=== PATIENT | female | born 1995 | race Caucasian/White ===

== ENCOUNTER 2017-03-14 13:13 | Emergency (ER) | payer MEDICAID ==
[~2017-03-14] VITALS: Ht 149.9 cm; Wt 67.1 kg
[~2017-03-14 13:13] MED LIST: BUPR-86 PO; CLON0.5T PO
[2017-03-14] MEDS ORDERED: ONDANSETRON 2MG/ML, 2ML IVPush ONE (16:00)
[2017-03-14] MEDS ORDERED: MORPHINE SULFATE 4 MG/ML, 1ML IVPush PRN (16:00)
[2017-03-14] MEDS ORDERED: SODIUM CHLORIDE 0.9% 1,000ML IVBOLUS ONE (16:00)
[2017-03-14] MEDS ORDERED: SODIUM CHLORIDE FLUSH 10ML SYR IVF ONE (16:00)
[2017-03-14] MEDS ORDERED: ONDANSETRON 2MG/ML, 2ML ONE (16:06)
[2017-03-14 16:31] LABS: BASOPHILS # (AUTO) 0.03 x10^3/uL (0-0.1); BASOPHILS % (AUTO) 0 % (0-1); EOSINOPHILS # (AUTO) 0.06 x10^3/uL (0-0.4); EOSINOPHILS % (AUTO) 1 % (1-7); LYMPHOCYTES # (AUTO) 2.53 x10^3/uL (1-3.4); LYMPHOCYTES % (AUTO) 27 % (22-44); MD NO; MEAN CORPUSCULAR HGB CONC 33.9 g/dL (32.4-35.8); MEAN CORPUSCULAR VOLUME 88.4 fL (80-100); MEAN PLATELET VOLUME 9.6 fL (7.4-10.4); MONOCYTES # (AUTO) 0.34 x10^3/uL (0.2-0.8); MONOCYTES % (AUTO) 4 % (2-9); NEUTROPHILS # (AUTO) 6.32 x10^3/uL (1.8-6.8); NEUTROPHILS % (AUTO) 68 % (42-75); PLATELET COUNT 278 x10^3/uL (130-400); RED BLOOD COUNT 4.49 x10^6/uL (3.82-5.3); RED CELL DISTRIBUTION WIDTH 13.3 % (9.6-15.2)
[2017-03-14] MEDS ORDERED: MORPHINE SULFATE 4 MG/ML, 1ML ONE (16:31)
[2017-03-14 16:43] LABS: ALBUMIN 3.9 g/dL (3.4-5.0); ANION GAP 6 mmol/L (5-15); CALCIUM 8.7 mg/dL (8.5-10.1); CHLORIDE 110 mmol/L (98-107); CREATININE 0.83 mg/dL (0.55-1.02)
[2017-03-14 16:54] LABS: MICROSCOPIC AUTO
[2017-03-14 17:03] LABS: CULTURE INDICATED? YES
[2017-03-14 17:31] VITALS: BP 121/74
[2017-03-18] MEDS ORDERED: ESCI5TAB7 PO (21:59)
== END 2017-03-14 17:33 | disposition home or self-care (01) ==
LOC: ED 17:03
DX: N30.00 Acute cystitis without hematuria (principal); R11.2 Nausea with vomiting, unspecified; Z90.49 Acquired absence of other specified parts of digestive tract
CPT/HCPCS: 36415; 80048; 81001; 82040; 83605; 84703; 85025; 87086; 96361; 96374; 96375; 99284; J2405; J7030

== ENCOUNTER 2017-03-31 19:27 | Emergency (ER) | payer MEDICAID ==
[~2017-03-31] VITALS: Ht 149.9 cm; Wt 67.7 kg
[~2017-03-31 19:27] MED LIST changes: +ESCI5TAB7 PO
[2017-03-31] MEDS ORDERED: SODIUM CHLORIDE FLUSH 10ML SYR IVF ONE (20:00)
[2017-03-31] MEDS ORDERED: SODIUM CHLORIDE 0.9% 1,000ML IVBOLUS ONE (20:00)
[2017-03-31] MEDS ORDERED: FAMOTIDINE 20 MG/2 ML IVP ONE (20:00)
[2017-03-31] MEDS ORDERED: ONDANSETRON 2MG/ML, 2ML IVPush ONE ×2 (20:00→22:30)
[2017-03-31] MEDS ORDERED: FAMOTIDINE 20 MG/2 ML ONE (20:31)
[2017-03-31] MEDS ORDERED: MORPHINE SULFATE 4 MG/ML, 1ML ONE (20:31)
[2017-03-31] MEDS ORDERED: ONDANSETRON 2MG/ML, 2ML ONE ×2 (20:31→22:14)
[2017-03-31] MEDS: MORPHINE SULFATE 4 MG/ML, 1ML IVPush PRN ×2 (20:35→22:19)
[2017-03-31 20:43] LABS: CULTURE INDICATED? YES; MICROSCOPIC INDICATED
[2017-03-31 20:51] LABS: BASOPHILS # (AUTO) 0.02 x10^3/uL (0-0.1); BASOPHILS % (AUTO) 0 % (0-1); EOSINOPHILS # (AUTO) 0.01 x10^3/uL (0-0.4); EOSINOPHILS % (AUTO) 0 % (1-7); LYMPHOCYTES # (AUTO) 1.26 x10^3/uL (1-3.4); LYMPHOCYTES % (AUTO) 14 % (22-44); MD NO; MEAN CORPUSCULAR HEMOGLOBIN 29.7 pg (27.0-34.8); MEAN CORPUSCULAR HGB CONC 33.8 g/dL (32.4-35.8); MEAN CORPUSCULAR VOLUME 87.6 fL (80-100); MEAN PLATELET VOLUME 9.4 fL (7.4-10.4); MONOCYTES # (AUTO) 0.48 x10^3/uL (0.2-0.8); MONOCYTES % (AUTO) 5 % (2-9); NEUTROPHILS # (AUTO) 7.37 x10^3/uL (1.8-6.8); NEUTROPHILS % (AUTO) 81 % (42-75); PLATELET COUNT 297 x10^3/uL (130-400); RED BLOOD COUNT 4.53 x10^6/uL (3.82-5.3); RED CELL DISTRIBUTION WIDTH 13.1 % (9.6-15.2)
[2017-03-31 21:01] LABS: ALANINE AMINOTRANSFERASE 29 U/L (12-78); ALBUMIN 3.6 g/dL (3.4-5.0); ANION GAP 9 mmol/L (5-15); CALCIUM 8.3 mg/dL (8.5-10.1); CHLORIDE 106 mmol/L (98-107); CREATININE 0.76 mg/dL (0.55-1.02)
[2017-03-31 21:06] LABS: ALKALINE PHOSPHATASE 72 U/L (45-117); BILIRUBIN,TOTAL 1.1 mg/dL (0.2-1.0); TOTAL PROTEIN 7.7 g/dL (6.4-8.2)
[2017-03-31] MEDS ORDERED: HYDROmorphone 2 MG/ML, 1ML ONE (22:13)
[2017-03-31 22:19] VITALS: BP 101/64
[2017-03-31] MEDS ORDERED: HYDROmorphone 1 MG/ML, 1ML IV ONE (22:30)
== END 2017-03-31 23:28 | disposition home or self-care (01) ==
LOC: ED 20:03
DX: R10.84 Generalized abdominal pain (principal); K29.00 Acute gastritis without bleeding; N30.00 Acute cystitis without hematuria; Z87.891 Personal history of nicotine dependence; Z90.49 Acquired absence of other specified parts of digestive tract
CPT/HCPCS: 36415; 80053; 81001; 83690; 84703; 85025; 87086; 96361; 96374; 96375; 99285; J1170; J2405; J7030; S0028

== ENCOUNTER 2017-07-19 07:39 | Emergency (ER) | payer MEDICAID ==
[~2017-07-19] VITALS: Ht 149.9 cm; Wt 69.2 kg
[2017-07-19 07:40] VITALS: BP 121/81
[2017-07-19] MEDS ORDERED: KETOROLAC 30 MG/1 ML ONE (08:51)
[2017-07-19] MEDS ORDERED: DIAZEPAM 5 MG TABLET ONE (08:51)
[2017-07-19] MEDS ORDERED: DIAZEPAM 5 MG TABLET PO ONE (09:00)
[2017-07-19] MEDS ORDERED: KETOROLAC 30 MG/1 ML IM ONE (09:00)
== END 2017-07-19 10:07 | disposition home or self-care (01) ==
LOC: ED 08:44
DX: S16.1XXA Strain of muscle, fascia and tendon at neck level, initial encounter (principal); Z90.49 Acquired absence of other specified parts of digestive tract; X58.XXXA Exposure to other specified factors, initial encounter; Y93.89 Activity, other specified; Y99.8 Other external cause status; Y92.89 Other specified places as the place of occurrence of the external cause
CPT/HCPCS: 96372; 99283; J1885

== ENCOUNTER 2018-04-19 19:47 | Emergency (ER) | payer MEDICAID ==
[~2018-04-19] VITALS: Ht 149.9 cm; Wt 74.5 kg
[2018-04-19 19:51] VITALS: BP 133/84
--- NOTE | 2018-04-19 20:42 | NUR ---
REPORT TO RAINA WOODS
--- NOTE | 2018-04-19 20:42 | NUR ---
PT HAS BEEN ILL FOR 3 WEEKS WITH N/V/D. PT IS CONCERNED THAT ITS HER SEROQUEL BEING STOPPED RECENTLY. PT IS ANXIOUS AND REPORTING INCREASED FATIGUE.
[2018-04-19 20:43] LABS: CULTURE INDICATED? YES; MICROSCOPIC INDICATED
[2018-04-19 20:52] LABS: BASOPHILS # (AUTO) 0.08 x10^3/uL (0-0.1); BASOPHILS % (AUTO) 1 % (0-1); EOSINOPHILS # (AUTO) 0.05 x10^3/uL (0-0.4); EOSINOPHILS % (AUTO) 1 % (1-7); LYMPHOCYTES # (AUTO) 2.65 x10^3/uL (1-3.4); LYMPHOCYTES % (AUTO) 26 % (22-44); MD NO; MEAN CORPUSCULAR HEMOGLOBIN 29.8 pg (27.0-34.8); MEAN CORPUSCULAR VOLUME 87.6 fL (80-100); MEAN PLATELET VOLUME 9.2 fL (7.4-10.4); MONOCYTES # (AUTO) 0.54 x10^3/uL (0.2-0.8); MONOCYTES % (AUTO) 5 % (2-9); NEUTROPHILS # (AUTO) 6.87 x10^3/uL (1.8-6.8); NEUTROPHILS % (AUTO) 68 % (42-75); PLATELET COUNT 306 x10^3/uL (130-400); RED BLOOD COUNT 4.43 x10^6/uL (3.82-5.3)
[2018-04-19] MEDS ORDERED: LORazepam 1MG TABLET ONE (20:54)
[2018-04-19] MEDS ORDERED: LORazepam 1MG TABLET PO ONE (21:00)
--- NOTE | 2018-04-19 21:01 | NUR ---
PT MEDICATED PER EMAR.
[2018-04-19 21:05] LABS: ALANINE AMINOTRANSFERASE 18 U/L (12-78); ALBUMIN 3.8 g/dL (3.4-5.0); ANION GAP 6 mmol/L (5-15); CALCIUM 8.8 mg/dL (8.5-10.1); CHLORIDE 109 mmol/L (98-107)
[2018-04-19 21:10] LABS: ALKALINE PHOSPHATASE 83 U/L (45-117); BILIRUBIN,TOTAL 0.2 mg/dL (0.2-1.0); TOTAL PROTEIN 7.7 g/dL (6.4-8.2)
--- NOTE | 2018-04-19 21:22 | NUR ---
PT STILL ANXIOUS BUT REPROTS FEELING BETTER.
[2018-04-19] MEDS ORDERED: ONDANSETRON ODT 4 MG ONE (22:19)
[2018-04-19] MEDS ORDERED: ONDANSETRON ODT 8 MG PO ONE (22:30)
--- NOTE | 2018-04-19 22:59 | NUR ---
Patient/Caregiver given discharge instructions and they have confirmed that they understand the instructions. Patient ambulatory with steady gait.
[2018-04-21] MEDS ORDERED: CLON1TAB PO (12:28)
[2018-04-21] MEDS ORDERED: QUET25TA5 PO (12:28)
[2018-04-21] MEDS ORDERED: VENL75CA PO (12:28)
== END 2018-04-19 23:02 | disposition home or self-care (01) ==
LOC: ED 20:40
DX: R11.2 Nausea with vomiting, unspecified (principal); R19.7 Diarrhea, unspecified
CPT/HCPCS: 36415; 80053; 81001; 84703; 85025; 87086; 99283; Q0162

== ENCOUNTER 2020-01-04 09:56 | Emergency (ER) | payer MEDICAID ==
[~2020-01-04] VITALS: Ht 149.9 cm; Wt 76.2 kg
[~2020-01-04 09:56] MED LIST changes: +CLON1TAB PO; +FLUO10CA13 PO; +QUET25TA5 PO; +TRAZ-175 PO; +VENL75CA PO
[2020-01-04 10:45] LABS: BASOPHILS % (AUTO) 0 % (0-1); EOSINOPHILS % (AUTO) 1 % (1-7); LYMPHOCYTES % (AUTO) 28 % (22-44); MEAN CORPUSCULAR HEMOGLOBIN 29.3 pg (27.0-34.8); MEAN CORPUSCULAR HGB CONC 33.4 g/dL (32.4-35.8); MONOCYTES % (AUTO) 6 % (2-9); NEUTROPHILS % (AUTO) 65 % (42-75); PLATELET COUNT 296 x10^3/uL (130-400); RED BLOOD COUNT 4.72 x10^6/uL (3.82-5.3); RED CELL DISTRIBUTION WIDTH 13.7 % (9.6-15.2)
[2020-01-04 10:47] LABS: MD NO
[2020-01-04 10:57] LABS: ALANINE AMINOTRANSFERASE 18 U/L (12-78); ANION GAP 3 mmol/L (5-15); CALCIUM 9.3 mg/dL (8.5-10.1); CHLORIDE 108 mmol/L (98-107); CREATININE 0.76 mg/dL (0.55-1.02)
[2020-01-04 11:01] LABS: ALKALINE PHOSPHATASE 67 U/L (45-117); BILIRUBIN,TOTAL 0.6 mg/dL (0.2-1.0)
--- NOTE | 2020-01-04 11:01 | NUR ---
no answer x2
--- NOTE | 2020-01-04 11:45 | NUR ---
pt walked back to room. labs done, ua pending, us back. changed to micah. awaiting . as
[2020-01-04] MEDS ORDERED: ONDANSETRON ODT 4 MG PO ONE (12:00)
[2020-01-04 12:09] LABS: MICROSCOPIC INDICATED
[2020-01-04] MEDS ORDERED: PROMETHAZINE 25 MG/ML, 1ML ONE (12:55)
[2020-01-04] MEDS ORDERED: ONDANSETRON ODT 4 MG ONE (12:55)
[2020-01-04] MEDS ORDERED: PROMETHAZINE 25 MG/ML, 1ML IM ONE (13:00)
--- NOTE | 2020-01-04 13:02 | NUR ---
given nausea meds and cup of water will do po chlg when feels a little better. call [place],. as
[2020-01-04] MEDS ORDERED: KETOROLAC 30 MG/1 ML IM ONE (13:30)
[2020-01-04] MEDS ORDERED: KETOROLAC 30 MG/1 ML ONE (13:45)
[2020-01-04 13:59] VITALS: BP 122/71
== END 2020-01-04 14:02 | disposition home or self-care (01) ==
LOC: ED 13:50
DX: N30.00 Acute cystitis without hematuria (principal); R30.0 Dysuria; R11.0 Nausea; M54.5 Low back pain; J45.909 Unspecified asthma, uncomplicated; Z90.49 Acquired absence of other specified parts of digestive tract; Z88.9 Allergy status to unspecified drugs, medicaments and biological substances; Z79.899 Other long term (current) drug therapy
CPT/HCPCS: 36415; 76770; 80053; 81001; 84703; 85025; 87086; 96372; 99284; J1885; J2550; Q0162